=== PATIENT | male | born 1935 | race Caucasian/White ===

== ENCOUNTER → 2016-07-26 | Outpatient (CLI) | payer OTHER ==
[2016-07-26 14:51] LABS: BASOPHILS # (AUTO) 0.03 10*3/UL; BASOPHILS % (AUTO) 0.4 % (0-1); EOSINOPHILS % (AUTO) 1.8 % (0-8); HEMATOCRIT 46.7 % (42.0-52.0); HEMOGLOBIN 15.3 g/dL (14.0-18.0); IMM GRAN % (AUTO) 0.1 % (0-5); IMM GRAN# (AUTO) 0.01 10*3/UL; LYMPHOCYTES # (AUTO) 1.93 10*3/uL; LYMPHOCYTES % (AUTO) 25.2 % (10-50); MEAN CORPUSCULAR HEMOGLOBIN 29.7 PG (27-31); MEAN CORPUSCULAR HGB CONC 32.8 g/dL (33-37); MEAN PLATELET VOLUME 9.4 FL (7.4-12.2); MONOCYTES % (AUTO) 6.5 % (5-15); NEUTROPHILS # (AUTO) 5.05 10*3/UL; RED BLOOD COUNT 5.16 10^6/uL (4.70-6.10); WHITE BLOOD COUNT 7.66 10^3/uL (4.8-10.8)
[2016-07-26 15:05] LABS: PLATELET MORPHOLOGY COMMENT NORMAL MORPHOLOGY (NORM)
[2016-07-26 16:14] LABS: BILIRUBIN,TOTAL 0.8 mg/dL (0.3-1.2); BUN/CREATININE RATIO 11.11 (6-20); CALCIUM 10.2 mg/dL (8.7-10.7); CREATININE 0.9 mg/dL (0.70-1.50); POTASSIUM 4.2 meq/L (3.8-5.2); TOTAL PROTEIN 7.4 g/dL (6.1-8.0)
== END ==
LOC: LAB 14:22
PROVIDERS: ATTEND Internal Medicine
DX: C25.0 Malignant neoplasm of head of pancreas (principal)
CPT/HCPCS: 36415; 80053; 85025; 86301

== ENCOUNTER → 2016-08-23 | Outpatient (CLI) | payer OTHER ==
[2016-08-23 11:57] LABS: BASOPHILS # (AUTO) 0.06 10*3/UL; BASOPHILS % (AUTO) 0.9 % (0-1); EOSINOPHILS % (AUTO) 3.7 % (0-8); HEMATOCRIT 45.1 % (42.0-52.0); HEMOGLOBIN 14.8 g/dL (14.0-18.0); IMM GRAN % (AUTO) 0.3 % (0-5); IMM GRAN# (AUTO) 0.02 10*3/UL; LYMPHOCYTES # (AUTO) 2.52 10*3/uL; LYMPHOCYTES % (AUTO) 38.9 % (10-50); MEAN CORPUSCULAR HEMOGLOBIN 29.5 PG (27-31); MEAN CORPUSCULAR HGB CONC 32.8 g/dL (33-37); MEAN PLATELET VOLUME 9.1 FL (7.4-12.2); MONOCYTES # (AUTO) 0.67 10*3/UL (0.3-0.8); MONOCYTES % (AUTO) 10.3 % (5-15); NEUTROPHILS # (AUTO) 2.97 10*3/UL; NEUTROPHILS % (AUTO) 45.9 % (50-80); RDW COEFFICIENT OF VARIATION 15.1 % (11.5-14.5); RED BLOOD COUNT 5.02 10^6/uL (4.70-6.10); WHITE BLOOD COUNT 6.48 10^3/uL (4.8-10.8)
[2016-08-23 12:01] LABS: PLATELET MORPHOLOGY COMMENT NORMAL MORPHOLOGY (NORM)
[2016-08-23 12:09] LABS: BILIRUBIN,TOTAL 0.8 mg/dL (0.3-1.2); CALCIUM 10.2 mg/dL (8.7-10.7); POTASSIUM 3.9 meq/L (3.8-5.2); TOTAL PROTEIN 7.3 g/dL (6.1-8.0)
== END ==
LOC: LAB 11:28
PROVIDERS: ATTEND Internal Medicine
DX: C25.9 Malignant neoplasm of pancreas, unspecified (principal)
CPT/HCPCS: 36415; 80053; 85025; 86301